=== PATIENT | male | born 1990 | race Caucasian/White ===

== ENCOUNTER 2018-11-28 09:49 | Emergency (ER) | payer SELFPAY ==
[2018-11-28] MEDS ORDERED: IV NORMAL SALINE 1,000ML 1,000 ML IV ONE (10:00)
[2018-11-28] MEDS ORDERED: ONDANSETRON PF 4 MG/2 ML VIAL. IV ONE (10:00)
[2018-11-28 10:12] LABS: BASO # 0.1 x10^3/uL (0.0-0.2); BASO % 1 % (0-3); EOS # 0.1 x10^3/uL (0.0-0.7); EOS % 1 % (0-3); HEMATOCRIT 50.9 % (39.0-53.0); HEMOGLOBIN 17.1 g/dL (13.0-17.5); LYMPH # 1.9 x10^3/uL (1.0-4.8); LYMPH % 20 % (24-48); MEAN CORPUSCULAR HEMOGLOBIN 29 pg (25-35); MEAN CORPUSCULAR HGB CONC 34 g/dL (31-37); MEAN CORPUSCULAR VOLUME 88 fL (79-100); MONO # 0.9 x10^3/uL (0.0-1.1); MONO % 10 % (0-9); NEUT # 6.8 x10^3uL (1.8-7.7); NEUT % 69 % (31-73); PLATELET COUNT 322 x10^3/uL (140-400); RED BLOOD COUNT 5.82 x10^6/uL (4.30-5.70); WHITE BLOOD COUNT 9.9 x10^3/uL (4.0-11.0)
[2018-11-28 10:27] LABS: ALBUMIN 4.6 g/dL (3.4-5.0); ALBUMIN/GLOBULIN RATIO 1.1 (1.0-1.7); CALCIUM 10.3 mg/dL (8.5-10.1); CREATININE 1.2 mg/dL (0.7-1.3); GFR 72.1; POTASSIUM 4.4 mmol/L (3.5-5.1); TOTAL BILIRUBIN 0.6 mg/dL (0.2-1.0); TOTAL PROTEIN 8.8 g/dL (6.4-8.2)
[2018-11-28] MEDS ORDERED: PANTOPRAZOLE IV 40 MG VIAL. IVP ONE (10:45)
--- NOTE | 2018-11-28 10:46 | PHYS DOC ---
Past History Past Medical History: Diverticulitis, Other Past Surgical History: No Surgical History Alcohol Use: None Drug Use: None Adult General Chief Complaint Chief Complaint: NAUSEA/VOMITING/DIARRHEA HPI HPI 28-year-old male presents with abdominal pain and vomiting. The patient was feeling well until Monday when he began have some intermittent vomiting and diffuse abdominal pain. He's had these episodes 4 times last 3 years. He has been told it so diverticulitis. He was also told it was gastritis due to NSAID use. The patient does not have any abdominal pain except for when vomiting. He is also not currently taking NSAIDs regularly. This morning when the patient vomited he stated that it looked like coffee ground. There was no bright red blood or melena. He denies dark stools. He does admit to fairly frequent heartburn 2-4 times a week. He takes omeprazole as needed for this. He has never had an EGD or colonoscopy due to insurance. He denies fever or chills. Review of Systems Review of Systems Constitutional: Denies fever or chills [] Eyes: Denies change in visual acuity, redness, or eye pain [] HENT: Denies nasal congestion or sore throat [] Respiratory: Denies cough or shortness of breath [] Cardiovascular: No additional information not addressed in HPI [] GI: Diffuse abdominal pain, nausea, vomiting. Denies bloody stools or diarrhea [] : Denies dysuria or hematuria [] Musculoskeletal: Denies back pain or joint pain [] Integument: Denies rash or skin lesions [] Neurologic: Denies headache, focal weakness or sensory changes [] Endocrine: Denies polyuria or polydipsia [] All other systems were reviewed and found to be within normal limits, except as documented in this note. Current Medications Current Medications Current Medications Medications (Trade) Dose Ordered Sig/Brian Start Time Stop Time Status Last Admin Dose Admin Ondansetron HCl (Zofran) 4 mg 1X ONCE 11/28/18 10:00 11/28/18 10:24 DC 11/28/18 10:05 4 MG Sodium Chloride 1,000 ml @ 1,000 mls/hr 1X ONCE 11/28/18 10:00 11/28/18 10:59 11/28/18 10:03 1,000 MLS/HR Allergies Allergies Allergies Coded Allergies Type Severity Reaction Last Updated Verified No Known Drug Allergies 11/28/18 No Physical Exam Physical Exam Constitutional: Well developed, well nourished, no acute distress, non-toxic appearance. [] HENT: Normocephalic, atraumatic, bilateral external ears normal, oropharynx moist, no oral exudates, nose normal. [] Eyes: PERRLA, EOMI, conjunctiva normal, no discharge. [] Neck: Normal range of motion, no tenderness, supple, no stridor. [] Cardiovascular:Heart rate regular rhythm, no murmur [] Lungs & Thorax: Bilateral breath sounds clear to auscultation [] Abdomen: Bowel sounds normal, soft, no tenderness, no masses, no pulsatile masses. [] Skin: Warm, dry, no erythema, no rash. [] Back: No tenderness, no CVA tenderness. [] Extremities: No tenderness, no cyanosis, no clubbing, ROM intact, no edema. [] Neurologic: Alert and oriented X 3, normal motor function, normal sensory function, no focal deficits noted. [] Psychologic: Affect normal, judgement normal, mood normal. [] Current Patient Data Vital Signs Vital Signs Date Time Temp Pulse Resp B/P (MAP) Pulse Ox O2 Delivery O2 Flow Rate FiO2 11/28/18 09:58 98.4 94 20 96 Room Air Lab Results Laboratory Tests Test 11/28/18 09:57 White Blood Count 9.9 x10^3/uL (4.0-11.0) Red Blood Count 5.82 x10^6/uL (4.30-5.70) H Hemoglobin 17.1 g/dL (13.0-17.5) Hematocrit 50.9 % (39.0-53.0) Mean Corpuscular Volume 88 fL (79-100) Mean Corpuscular Hemoglobin 29 pg (25-35) Mean Corpuscular Hemoglobin Concent 34 g/dL (31-37) Red Cell Distribution Width 13.0 % (11.5-14.5) Platelet Count 322 x10^3/uL (140-400) Neutrophils (%) (Auto) 69 % (31-73) Lymphocytes (%) (Auto) 20 % (24-48) L Monocytes (%) (Auto) 10 % (0-9) H Eosinophils (%) (Auto) 1 % (0-3) Basophils (%) (Auto) 1 % (0-3) Neutrophils # (Auto) 6.8 x10^3uL (1.8-7.7) Lymphocytes # (Auto) 1.9 x10^3/uL (1.0-4.8) Monocytes # (Auto) 0.9 x10^3/uL (0.0-1.1) Eosinophils # (Auto) 0.1 x10^3/uL (0.0-0.7) Basophils # (Auto) 0.1 x10^3/uL (0.0-0.2) Sodium Level 138 mmol/L (136-145) Potassium Level 4.4 mmol/L (3.5-5.1) Chloride Level 101 mmol/L (98-107) Carbon Dioxide Level 27 mmol/L (21-32) Anion Gap 10 (6-14) Blood Urea Nitrogen 17 mg/dL (8-26) Creatinine 1.2 mg/dL (0.7-1.3) Estimated GFR (Cockcroft-Gault) 72.1 BUN/Creatinine Ratio 14 (6-20) Glucose Level 102 mg/dL (70-99) H Calcium Level 10.3 mg/dL (8.5-10.1) H Total Bilirubin 0.6 mg/dL (0.2-1.0) Aspartate Amino Transferase (AST) 32 U/L (15-37) Alanine Aminotransferase (ALT) 89 U/L (16-63) H Alkaline Phosphatase 71 U/L (46-116) Total Protein 8.8 g/dL (6.4-8.2) H Albumin 4.6 g/dL (3.4-5.0) Albumin/Globulin Ratio 1.1 (1.0-1.7) EKG EKG [] Radiology/Procedures Radiology/Procedures [] Course & Med Decision Making Course & Med Decision Making Pertinent Labs and Imaging studies reviewed. (See chart for details) Patient was given normal saline and 4 mg of Zofran IV. This has controlled his vomiting. He does not currently have abdominal pain. Based on the history and physical exam I believe the patient has GERD and gastritis. Coffee-ground emesis indicates he likely has an erosion. His labs are unremarkable. He is not anemic. I will give him 40 mg Protonix IV in the ED. I have also advised that he take 40 mg of his omeprazole daily for the next 30 days. He will follow-up with his PCP as needed. If he develops further symptoms he will return to the emergency room. He is stable for discharge at this time [] Dragon Disclaimer Dragon Disclaimer This electronic medical record was generated, in whole or in part, using a voice recognition dictation system. Departure Departure: Impression: Primary Impression: GERD (gastroesophageal reflux disease) Additional Impression: Gastritis Disposition: HOME, SELF-CARE Condition: STABLE Referrals: PCP,NO (PCP) Patient Instructions: Gastritis, Adult, [id number], Gastroesophageal Reflux Disease, Adult, [id number] Additional Instructions: Please take 40 mg of omeprazole daily for the next 30 days. If her symptoms worsen or new symptoms develop that are concerning, please return to the emergency room. Problem Qualifiers Primary Impression: GERD (gastroesophageal reflux disease) Esophagitis presence: without esophagitis Qualified Codes: K21.9 - Gastro-esophageal reflux disease without esophagitis Additional Impression: Gastritis Gastritis type: unspecified gastritis Chronicity: acute Gastritis bleeding: with bleeding Qualified Codes: K29.01 - Acute gastritis with bleeding EVELIO MCGOWAN DO Nov 28, 2018 10:45
[2018-11-28] MEDS ORDERED: ONDA4TAB12 PO (10:50)
[2018-11-28 10:58] VITALS: BP 136/78
== END 2018-11-28 11:01 | disposition home or self-care (01) ==
LOC: ER 09:49
DX: K21.9 Gastro-esophageal reflux disease without esophagitis (principal); K29.01 Acute gastritis with bleeding
CPT/HCPCS: 36415; 80053; 85025; 96361; 96374; 96375; 99284; C9113; J2405; J7030

== ENCOUNTER 2020-03-30 11:18 | Emergency (ER) | payer SELFPAY ==
[~2020-03-30] VITALS: Ht 182.9 cm; Wt 126.7 kg
[~2020-03-30 11:18] MED LIST: ONDA4TAB12 PO
--- NOTE | 2020-03-30 11:37 | PHYS DOC ---
Past History Past Medical History: Diverticulitis, Other Past Surgical History: No Surgical History Alcohol Use: None Drug Use: None Adult General HPI HPI Patient is a [age] year old [sex] who presents with [] Lightheaded after coughing spell long history this no cardiac history, has never had a formal work-up Does not see his primary care doctor regularly, has known anxiety Review of Systems Review of Systems Fourteen body systems of review of systems have been reviewed. See HPI for pertinent positives and negative responses, other wu all other systems are negative, non-pertinent or non-contributory Allergies Allergies Allergies Coded Allergies Type Severity Reaction Last Updated Verified No Known Drug Allergies 11/28/18 No Physical Exam Physical Exam Constitutional: Well developed, well nourished, no acute distress, non-toxic appearance. HENT: Normocephalic, atraumatic, bilateral external ears normal, oropharynx moist, no oral exudates, nose normal. Eyes: PERRLA, EOMI, conjunctiva normal, no discharge. Neck: Normal range of motion, no tenderness, supple, no stridor. Cardiovascular: Heart rate regular, sinus rhythm, no murmurs rubs or gallops Lungs & Thorax: Bilateral breath sounds clear to auscultation Abdomen: Bowel sounds normal, soft, no tenderness, no masses, no pulsatile masses. Nonsurgical abdomen, no peritoneal signs Skin: Warm, dry, no erythema, no rash. Back: No tenderness, no CVA tenderness. Extremities: No tenderness, no cyanosis, no clubbing, ROM intact, no edema. Neurologic: Alert and oriented X 3, grossly normal motor & sensory function, no focal deficits noted. Psychologic: Affect normal, judgement normal, mood normal. EKG EKG EKG ordered and interpreted by myself at 1203 hrs. as sinus rhythm at 68 bpm, unremarkable intervals, no axis deviation, no acute/ischemic findings, no STEMI Radiology/Procedures Radiology/Procedures PROCEDURE: CHEST AP ONLY CHEST AP ONLY History: Reason: dizzy / Spl. Instructions: / History: Comparison: None. Findings: No consolidation or pleural effusion. Normal heart size. No pneumothorax. Impression: 1. No acute cardiopulmonary process. Electronically signed by: Oj Stubbs DO (03/30/2020 12:18 PM) [id number] Heart Score Risk Factors: Risk Factors: DM, Current or recent (<one month) smoker, HTN, HLP, family history of CAD, obesity. Risk Scores: Risk Factors: DM, Current or recent (<one month) smoker, HTN, HLP, family history of CAD, obesity. Course & Med Decision Making Course & Med Decision Making Pertinent Labs and Imaging studies reviewed. (See chart for details) [] Dragon Disclaimer Dragon Disclaimer This electronic medical record was generated, in whole or in part, using a voice recognition dictation system. Departure Departure: Impression: Primary Impression: Vasovagal episode Disposition: 01 DC HOME SELF CARE/HOMELESS Condition: STABLE Referrals: PCP,NO (PCP) Patient Instructions: Dizziness Additional Instructions: As discussed prior to ER departure please call your primary care physician first thing after discharge to call and schedule appointment in upcoming 10 days for repeat evaluation and discussion of current ER visit today There were no emergent and/or surgical findings present today. There is no indication for further diagnostic work-up in ER setting. I recommend you discuss with your primary care physician the need for further provocative cardiac testing such as stress test etc. Any concerning signs or symptoms present prior to outpatient follow-up please do not hesitate to come back for repeat evaluation It was a pleasure to take care of you and I wish you the best going forward MAUREEN DUNBAR DO Mar 30, 2020 11:37
--- NOTE | 2020-03-30 12:21 | RAD ---
CHEST AP ONLY History: Reason: dizzy / Spl. Instructions: / History: Comparison: None. Findings: No consolidation or pleural effusion. Normal heart size. No pneumothorax. Impression: 1. No acute cardiopulmonary process. Electronically signed by: Oj Stubbs DO (03/30/2020 12:18 PM) [id number]
[2020-03-30 12:54] VITALS: BP 161/92
--- NOTE | 2020-03-30 14:50 | EKG ---
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
== END 2020-03-30 13:13 | disposition home or self-care (01) ==
LOC: ER 11:18
DX: R55 Syncope and collapse (principal); R05 Cough; R42 Dizziness and giddiness
CPT/HCPCS: 71045; 82947; 93005; 99285